=== PATIENT | female | born 1990 | race Hispanic/Latino ===

== ENCOUNTER → 2024-10-19 06:57 | Outpatient (CLI) | payer OTHER, SELFPAY ==
--- NOTE | 2024-10-19 07:00 | DI.US.S_ITS ---
PROCEDURE: US OB <= 14 WEEKS FETUS INDICATIONS: Dating and Viability OUTSIDE/PRIOR DATING DATA: Last menstrual period (LMP): 08/19/2024 LMP-based estimated date of delivery (ARIADNE): 05/26/2025 First dating scan (date and location): 10/19/2024 Estimated date of delivery (ARIADNE) from first dating scan: 05/29/2025 TECHNIQUE: Real-time scanning was performed of the fetus and maternal pelvic organs, with image documentation. Endovaginal scanning was also performed to better visualize the fetus and maternal ovaries. COMPARISON: None. FINDINGS: Embryo: Intrauterine gestational sac is seen with yolk sac and pole. [place]-rump length is 1.8 cm compatible with an estimated gestational age of 8 weeks 2 days. Heart rate: 160 beats per minute Maternal organs: Right ovary is unremarkable and the left ovary is not well visualized. IMPRESSION: Single live intrauterine with estimated gestational age of 8 weeks 2 days, which is concordant with clinical dates. Approved by: Shahram Kraft M.D. on 10/19/2024 at 15:56
== END ==
PROVIDERS: Referring Provider Advanced Practice Midwife; Visit Provider Advanced Practice Midwife
DX: O36.80X0 Pregnancy with inconclusive fetal viability, not applicable or unspecified (principal)
CPT/HCPCS: 76801; 76817

== ENCOUNTER → 2025-01-10 09:00 | Outpatient (CLI) | payer OTHER, SELFPAY ==
--- NOTE | 2025-01-10 09:02 | DI.US.S_ITS ---
PROCEDURE: US OB >= 14 WEEKS FETUS INDICATIONS: 20 week anatomy scan TECHNIQUE: Real-time scanning was performed of the fetus, with image documentation and biometric measurements. Calculations are based on the working ARIADNE of 05/26/2025. COMPARISON: None. FINDINGS: General: A single living intrauterine gestation is present. Presentation: Mobile. Placenta: Placental position is anterior , without previa. Amniotic fluid index: 13 point cm, normal range is 5-24 cm. Single deepest vertical pocket is 4.7 cm. heart rate: 144 beats per minute. Maternal cervical canal: 2.6 cm long. Normal lower limit is 2.5 cm. biometrics: Biparietal diameter: 4.8 cm, 20 week 4 day Head circumference: 18.2 cm, 20 week 4 day Abdominal circumference: 15.4 cm, 20 week 4 day Femur length: 3.4 cm, 20 week 4 day Clinically estimated gestational age: 20 week 4 day Composite gestational age from present scan: 20 week 4 day Estimated weight and percentile: 365 g, 47% Anatomic survey: Neuro: Ventricles are non-dilated at less than 10 mm. Cisterna magna is normal at 3-11 mm. Cerebellum is normal in size and morphology. Nuchal skin fold: Normal at less than 6 mm between 14-21 weeks gestational age. Face: Nose and lips, facial profile are normal. Spine: No evidence for spina bifida. Heart: 4-chambered heart is present, with normal ventricular outflow tracts. Diaphragm: Diaphragm is intact. Stomach: Left-sided stomach is present. Kidneys: No hydronephrosis. Normal is less than 5 mm in 2nd trimester, less than 7 mm in 3rd trimester. Cord: 3-vessel cord has orthotopic insertion. Bladder: Normal in size. Extremities: All 4 extremities identified. IMPRESSION: Single live intrauterine consistent with 20 week 4 day gestation Approved by: Antony Lopez M.D. on 01/10/2025 at 20:37
== END ==
LOC: US 09:01
PROVIDERS: Referring Provider Advanced Practice Midwife; Visit Provider Advanced Practice Midwife
DX: Z34.92 Encounter for supervision of normal pregnancy, unspecified, second trimester (principal); Z3A.20 20 weeks gestation of pregnancy
CPT/HCPCS: 76811